=== PATIENT | female | born 1995 | race Two or more races ===

== ENCOUNTER 2018-12-23 20:07 | Emergency (ER) | payer MEDICAID ==
[~2018-12-23] VITALS: Ht 167.6 cm; Wt 65.0 kg
[2018-12-23 20:11] VITALS: BP 107/71
== END 2018-12-23 20:47 | disposition left against medical advice (07) ==
LOC: ER 20:07
DX: Z53.21 Procedure and treatment not carried out due to patient leaving prior to being seen by health care provider (principal)

== ENCOUNTER 2018-12-29 20:35 | Emergency (ER) | payer MEDICAID ==
[~2018-12-29] VITALS: Ht 167.6 cm; Wt 66.0 kg
[2018-12-29] MEDS ORDERED: IPRATROPIUM BROMIDE (0.02%) 0.5MG/2.5ML NEB HHN STA (20:56)
[2018-12-29] MEDS ORDERED: ALBUTEROL (0.083%) 2.5MG/3ML NEB HHN STA (20:56)
[2018-12-29 22:34] VITALS: BP 120/75
== END 2018-12-29 22:34 | disposition home or self-care (01) ==
LOC: ER 20:35
DX: J45.901 Unspecified asthma with (acute) exacerbation (principal); F20.9 Schizophrenia, unspecified; F41.9 Anxiety disorder, unspecified
CPT/HCPCS: 94640; 99283; J7611; Z7610

== ENCOUNTER 2018-12-30 03:44 | Emergency (ER) | payer MEDICAID ==
[~2018-12-30] VITALS: Ht 165.1 cm; Wt 66.0 kg
[2018-12-30] MEDS ORDERED: SODIUM CHLORIDE 0.9% 1,000 ML IV ONE (06:29)
[2018-12-30] MEDS ORDERED: KETOROLAC 30MG/ML VIAL IV STA (06:29)
[2018-12-30 07:04] LABS: BASOPHILS % 0.6 % (0.0-2.0); EOSINOPHILS % 0.8 % (0.0-5.0); HEMATOCRIT. 39.8 % (36.0-48.0); HEMOGLOBIN. 13.5 g/dL (12.0-16.0); LYMPHOCYTES % 25.8 % (20.0-50.0); MEAN CORPUSCULAR HEMOGLOBIN 31.4 pg (28.0-32.0); MEAN PLATELET VOLUME 8.5 fl (7.4-10.4); MONOCYTES % 7.5 % (2.0-8.0); NEUTROPHILS % 65.3 % (40.0-76.0); PLATELET 287 x1000/uL (130-400); RED BLOOD CELL COUNT 4.28 mill/uL (4.2-5.4); RED CELL DISTRIBUTION WIDTH 13.9 % (11.6-14.6)
[2018-12-30 07:10] LABS: CHLORIDE 108 mEq/L (98-107)
[2018-12-30 07:25] LABS: HCG SCREEN NEGATIVE
[2018-12-30 07:37] LABS: CLARITY URINE CLEAR (CLEAR); COLOR URINE YELLOW (YELLOW); KETONES URINE NEGATIVE (NEGATIVE); LEUKOCYTE ESTERASE URINE TRACE (NEGATIVE); NITRITE URINE NEGATIVE (NEGATIVE); OCCULT BLOOD URINE NEGATIVE (NEGATIVE); PH URINE 5.5 (4.5-8.0); PROTEIN URINE NEGATIVE (NEGATIVE); SPECIFIC GRAVITY URINE 1.022 (1.005-1.030); UROBILINOGEN URINE 0.2 E.U./dL (0.2-1.0)
[2018-12-30] MEDS ORDERED: CEFTRIAXONE 1 G PREMIX 50 ML IV ONE (08:15)
[2018-12-30 09:19] VITALS: BP 116/63
== END 2018-12-30 09:21 | disposition home or self-care (01) ==
LOC: ER 03:44
DX: N10 Acute pyelonephritis (principal)
CPT/HCPCS: 36415; 74176; 80053; 81003; 83690; 84703; 85025; 85610; 87086; 96365; 96375; 99284; J0696; J1885; J7030; Z7610

== ENCOUNTER 2019-01-07 20:20 | Emergency (ER) | payer MEDICAID ==
[~2019-01-07] VITALS: Ht 162.6 cm; Wt 64.0 kg
[2019-01-07 21:35] LABS: CLARITY URINE CLEAR (CLEAR); COLOR URINE YELLOW (YELLOW); KETONES URINE NEGATIVE (NEGATIVE); LEUKOCYTE ESTERASE URINE NEGATIVE (NEGATIVE); NITRITE URINE NEGATIVE (NEGATIVE); OCCULT BLOOD URINE NEGATIVE (NEGATIVE); PROTEIN URINE NEGATIVE (NEGATIVE); SPECIFIC GRAVITY URINE 1.002 (1.005-1.030); UROBILINOGEN URINE 0.2 E.U./dL (0.2-1.0)
[2019-01-07] MEDS ORDERED: KETOROLAC 60MG/2ML VIAL IM ONE (22:00)
[2019-01-07 22:34] VITALS: BP 125/84
== END 2019-01-07 22:35 | disposition home or self-care (01) ==
LOC: ER 20:20
DX: M79.18 Myalgia, other site (principal); Z87.440 Personal history of urinary (tract) infections
CPT/HCPCS: 81003; 81025; 96372; 99283; J1885

== ENCOUNTER 2019-01-14 16:01 | Emergency (ER) | payer MEDICAID ==
[~2019-01-14] VITALS: Ht 167.6 cm; Wt 66.0 kg
[2019-01-14] MEDS ORDERED: SODIUM CHLORIDE 0.9% 1,000 ML IV ONE (16:27)
[2019-01-14] MEDS ORDERED: ALBUTEROL (0.083%) 2.5MG/3ML NEB HHN ONE (16:30)
[2019-01-14 16:50] LABS: BASOPHILS % 0.7 % (0.0-2.0); EOSINOPHILS % 1.4 % (0.0-5.0); HEMATOCRIT. 39.7 % (36.0-48.0); HEMOGLOBIN. 13.3 g/dL (12.0-16.0); LYMPHOCYTES % 37.7 % (20.0-50.0); MEAN CORPUSCULAR HEMOGLOBIN 31.2 pg (28.0-32.0); MEAN CORPUSCULAR VOLUME 93.4 fL (81.0-99.0); MEAN PLATELET VOLUME 9.3 fl (7.4-10.4); MONOCYTES % 5.3 % (2.0-8.0); NEUTROPHILS % 54.9 % (40.0-76.0); PLATELET 276 x1000/uL (130-400); RED BLOOD CELL COUNT 4.26 mill/uL (4.2-5.4); RED CELL DISTRIBUTION WIDTH 13.5 % (11.6-14.6)
[2019-01-14 16:57] LABS: CHLORIDE 110 mEq/L (98-107)
[2019-01-14] MEDS ORDERED: LORAZEPAM 1MG TABLET PO ONE (17:15)
[2019-01-14 18:42] LABS: CLARITY URINE CLEAR (CLEAR); COLOR URINE YELLOW (YELLOW); KETONES URINE NEGATIVE (NEGATIVE); LEUKOCYTE ESTERASE URINE TRACE (NEGATIVE); NITRITE URINE NEGATIVE (NEGATIVE); OCCULT BLOOD URINE 3+ (NEGATIVE); PH URINE 7.5 (4.5-8.0); PROTEIN URINE NEGATIVE (NEGATIVE); SPECIFIC GRAVITY URINE 1.012 (1.005-1.030); UROBILINOGEN URINE 0.2 E.U./dL (0.2-1.0)
[2019-01-14] MEDS ORDERED: LORAZEPAM 2MG/ML CPJ IV ONE (18:45)
[2019-01-14] MEDS ORDERED: ALBUTEROL (0.5%) 2.5MG/0.5ML NEB HHN ONE (18:45)
[2019-01-14] MEDS ORDERED: POTASSIUM CHLORIDE 20MEQ TABLET SR PO ONE (18:45)
[2019-01-14 19:30] VITALS: BP 114/75
== END 2019-01-14 20:00 | disposition home or self-care (01) ==
LOC: ER 16:01
DX: J45.901 Unspecified asthma with (acute) exacerbation (principal); E87.6 Hypokalemia; N39.0 Urinary tract infection, site not specified
CPT/HCPCS: 36415; 71045; 80053; 81003; 82962; 85025; 93005; 94640; 96374; 99284; J2060; J7030; J7611; Z7610

== ENCOUNTER 2019-01-16 13:55 | Emergency (ER) | payer MEDICAID ==
[~2019-01-16] VITALS: Ht 167.6 cm; Wt 70.0 kg
[2019-01-16] MEDS ORDERED: ALPRAZOLAM 0.25 MG TABLET PO ONE (14:45)
[2019-01-16] MEDS ORDERED: ALBUTEROL (0.083%) 2.5MG/3ML NEB HHN ONE (14:45)
[2019-01-16] MEDS ORDERED: PREDNISONE 20MG TABLET PO ONE (14:45)
[2019-01-16 16:20] VITALS: BP 121/84
== END 2019-01-16 17:32 | disposition home or self-care (01) ==
LOC: ER 14:48
DX: J15.9 Unspecified bacterial pneumonia (principal); J45.909 Unspecified asthma, uncomplicated; Z87.440 Personal history of urinary (tract) infections
CPT/HCPCS: 94640; 99283; J7512; J7611; Z7610

== ENCOUNTER 2019-01-16 19:18 | Emergency (ER) | payer MEDICAID ==
[~2019-01-16] VITALS: Ht 162.6 cm; Wt 73.0 kg
[2019-01-16 19:25] VITALS: BP 112/72
== END 2019-01-16 21:40 | disposition left against medical advice (07) ==
LOC: ER 19:32
DX: R06.02 Shortness of breath (principal); Z53.21 Procedure and treatment not carried out due to patient leaving prior to being seen by health care provider

== ENCOUNTER 2019-01-18 14:15 | Emergency (ER) | payer MEDICAID ==
[~2019-01-18] VITALS: Ht 170.2 cm; Wt 73.0 kg
[2019-01-18] MEDS ORDERED: ALBUTEROL (0.083%) 2.5MG/3ML NEB HHN STA (14:45)
[2019-01-18] MEDS ORDERED: DIPHENHYDRAMINE 50MG CAPSULE PO ONE (14:45)
[2019-01-18] MEDS ORDERED: FAMOTIDINE 20MG TABLET PO ONE (14:45)
[2019-01-18] MEDS ORDERED: LORAZEPAM 1MG TABLET PO ONE (17:48)
[2019-01-18 18:04] VITALS: BP 114/75
== END 2019-01-18 18:10 | disposition home or self-care (01) ==
LOC: ER 14:15
DX: R06.02 Shortness of breath (principal); F41.9 Anxiety disorder, unspecified; F17.210 Nicotine dependence, cigarettes, uncomplicated; F12.10 Cannabis abuse, uncomplicated; J45.909 Unspecified asthma, uncomplicated
CPT/HCPCS: 71045; 94644; 99285; 99406; J7611; Q0163; Z7610; 99284

== ENCOUNTER 2019-01-21 03:01 | Emergency (ER) | payer MEDICAID ==
[~2019-01-21] VITALS: Ht 167.6 cm; Wt 84.0 kg
[2019-01-21 03:45] VITALS: BP 122/72
== END 2019-01-21 04:29 | disposition home or self-care (01) ==
LOC: ER 03:18
DX: J45.909 Unspecified asthma, uncomplicated (principal); F41.9 Anxiety disorder, unspecified; F17.290 Nicotine dependence, other tobacco product, uncomplicated; F12.10 Cannabis abuse, uncomplicated
CPT/HCPCS: 99283

== ENCOUNTER 2019-01-31 18:31 | Emergency (ER) | payer MEDICAID ==
[~2019-01-31] VITALS: Ht 165.1 cm; Wt 60.0 kg
[2019-01-31 18:45] VITALS: BP 132/68
[2019-01-31] MEDS ORDERED: ALBUTEROL (0.083%) 2.5MG/3ML NEB HHN ONE (20:30)
== END 2019-01-31 20:16 | disposition left against medical advice (07) ==
LOC: ER 18:31
DX: J45.901 Unspecified asthma with (acute) exacerbation (principal)
CPT/HCPCS: 94640; 99283; J7611

== ENCOUNTER 2019-02-02 17:17 | Emergency (ER) | payer MEDICAID ==
[~2019-02-02] VITALS: Ht 165.1 cm; Wt 73.0 kg
[2019-02-02] MEDS ORDERED: IPRATROPIUM BROMIDE (0.02%) 0.5MG/2.5ML NEB HHN STA (18:04)
[2019-02-02] MEDS ORDERED: ALBUTEROL (0.083%) 2.5MG/3ML NEB HHN STA (18:04)
[2019-02-02] MEDS ORDERED: ALPRAZOLAM 0.25 MG TABLET PO ONE (18:15)
[2019-02-02 19:25] VITALS: BP 121/69
== END 2019-02-02 19:30 | disposition home or self-care (01) ==
LOC: ER 18:18
DX: J45.901 Unspecified asthma with (acute) exacerbation (principal); F41.9 Anxiety disorder, unspecified
CPT/HCPCS: 81025; 94640; 99284; J7611; Z7610

== ENCOUNTER 2019-02-13 11:59 | Emergency (ER) | payer MEDICAID ==
[~2019-02-13] VITALS: Ht 165.1 cm; Wt 64.0 kg
[2019-02-13] MEDS ORDERED: IPRATROPIUM BROMIDE (0.02%) 0.5MG/2.5ML NEB HHN STA (12:22)
[2019-02-13] MEDS ORDERED: PREDNISONE 20MG TABLET PO STA (12:22)
[2019-02-13] MEDS ORDERED: ALBUTEROL (0.083%) 2.5MG/3ML NEB HHN STA (12:22)
[2019-02-13 13:44] VITALS: BP 112/76
[2019-02-13 14:53] LABS: METHADONE URINE SCREEN NEGATIVE (NEGATIVE); OPIATES URINE SCREEN NEGATIVE (NEGATIVE); PHENCYCLIDINE URINE SCREEN NEGATIVE (NEGATIVE)
[2019-02-13 14:54] LABS: *AMPHETAMINES SCREEN URINE NEGATIVE (NEGATIVE); *BARBITURATES SCREEN URINE NEGATIVE (NEGATIVE); *BENZODIAZEPINES SCREEN URINE NEGATIVE (NEGATIVE); *COCAINE SCREEN URINE NEGATIVE (NEGATIVE)
[2019-02-13 15:01] LABS: CANNABINOID URINE SCREEN PRESUMTIVE POSITIVE (NEGATIVE)
== END 2019-02-13 13:58 | disposition home or self-care (01) ==
LOC: ER 12:28
DX: J45.901 Unspecified asthma with (acute) exacerbation (principal); F17.290 Nicotine dependence, other tobacco product, uncomplicated; F12.10 Cannabis abuse, uncomplicated; F32.9 Major depressive disorder, single episode, unspecified
CPT/HCPCS: 71045; 80305; 94640; 99284; 99406; J7512; J7611; Z7610

== ENCOUNTER 2019-02-13 16:02 | Emergency (ER) | payer MEDICAID ==
[~2019-02-13] VITALS: Ht 167.6 cm; Wt 64.0 kg
[2019-02-13 16:03] VITALS: BP 128/75
== END 2019-02-13 16:52 | disposition left against medical advice (07) ==
LOC: ER 16:02
DX: J45.901 Unspecified asthma with (acute) exacerbation (principal); F41.9 Anxiety disorder, unspecified; F32.9 Major depressive disorder, single episode, unspecified; F20.9 Schizophrenia, unspecified; F12.10 Cannabis abuse, uncomplicated
CPT/HCPCS: 99283

== ENCOUNTER 2019-02-14 09:31 | Emergency (ER) | payer MEDICAID ==
[~2019-02-14] VITALS: Ht 165.1 cm; Wt 68.0 kg
[2019-02-14] MEDS ORDERED: IBUPROFEN 600MG TABLET PO ONE (10:45)
[2019-02-14 11:05] VITALS: BP 123/77
== END 2019-02-14 11:05 | disposition home or self-care (01) ==
LOC: ER 09:31
DX: R07.89 Other chest pain (principal); R06.02 Shortness of breath; F12.10 Cannabis abuse, uncomplicated; F41.9 Anxiety disorder, unspecified; J45.909 Unspecified asthma, uncomplicated; F32.9 Major depressive disorder, single episode, unspecified; F20.9 Schizophrenia, unspecified
CPT/HCPCS: 81025; 93005; 99283

== ENCOUNTER 2019-02-18 10:30 | Emergency (ER) | payer MEDICAID ==
[~2019-02-18] VITALS: Ht 170.2 cm; Wt 70.0 kg
[2019-02-18] MEDS ORDERED: ALBUTEROL (0.083%) 2.5MG/3ML NEB HHN STA (10:48)
[2019-02-18] MEDS ORDERED: IPRATROPIUM BROMIDE (0.02%) 0.5MG/2.5ML NEB HHN STA (10:48)
[2019-02-18] MEDS ORDERED: SODIUM CHLORIDE 0.9% 1,000 ML IV ONE ×2 (10:48→12:45)
[2019-02-18] MEDS ORDERED: ALBUTEROL (0.083%) 2.5MG/3ML NEB ONE (11:00)
[2019-02-18] MEDS ORDERED: IPRATROPIUM BROMIDE (0.02%) 0.5MG/2.5ML NEB ONE (11:01)
[2019-02-18 11:48] LABS: BASOPHILS % 0.4 % (0.0-2.0); EOSINOPHILS % 0.6 % (0.0-5.0); HEMATOCRIT. 39.9 % (36.0-48.0); HEMOGLOBIN. 13.4 g/dL (12.0-16.0); LYMPHOCYTES % 22.5 % (20.0-50.0); MEAN CORPUSCULAR HEMOGLOBIN 31.4 pg (28.0-32.0); MEAN CORPUSCULAR VOLUME 93.2 fL (81.0-99.0); MEAN PLATELET VOLUME 8.2 fl (7.4-10.4); MONOCYTES % 6.7 % (2.0-8.0); NEUTROPHILS % 69.8 % (40.0-76.0); PLATELET 320 x1000/uL (130-400); RED BLOOD CELL COUNT 4.28 mill/uL (4.2-5.4); RED CELL DISTRIBUTION WIDTH 14.5 % (11.6-14.6)
[2019-02-18 11:57] LABS: CHLORIDE 111 mEq/L (98-107)
[2019-02-18 14:07] VITALS: BP 130/76
== END 2019-02-18 14:11 | disposition home or self-care (01) ==
LOC: ER 10:49
DX: R06.02 Shortness of breath (principal); F17.290 Nicotine dependence, other tobacco product, uncomplicated; F41.9 Anxiety disorder, unspecified
CPT/HCPCS: 36415; 71046; 80053; 83880; 84484; 85025; 85379; 93005; 94640; 99284; 99406; J7030; J7611; Z7610

== ENCOUNTER 2019-02-26 17:17 | Emergency (ER) | payer MEDICAID ==
[~2019-02-26] VITALS: Ht 165.1 cm; Wt 70.0 kg
[2019-02-26 17:20] VITALS: BP 122/78
== END 2019-02-26 18:24 | disposition left against medical advice (07) ==
LOC: ER 17:17
DX: F91.8 Other conduct disorders (principal); F12.188 Cannabis abuse with other cannabis-induced disorder; F19.10 Other psychoactive substance abuse, uncomplicated; R03.0 Elevated blood-pressure reading, without diagnosis of hypertension; J45.909 Unspecified asthma, uncomplicated; Z92.89 Personal history of other medical treatment
CPT/HCPCS: 99283

== ENCOUNTER 2019-02-26 18:56 | Emergency (ER) | payer MEDICAID ==
[~2019-02-26] VITALS: Ht 167.6 cm; Wt 61.0 kg
[2019-02-26 18:58] VITALS: BP 124/83
== END 2019-02-26 20:45 | disposition left against medical advice (07) ==
LOC: ER 18:56
DX: Z53.21 Procedure and treatment not carried out due to patient leaving prior to being seen by health care provider (principal)

== ENCOUNTER 2019-03-20 16:49 | Emergency (ER) | payer MEDICAID ==
[~2019-03-20] VITALS: Ht 167.6 cm; Wt 68.0 kg
[2019-03-20 16:55] VITALS: BP 116/80
== END 2019-03-20 23:21 | disposition left against medical advice (07) ==
LOC: ER 16:49
DX: R06.02 Shortness of breath (principal); Z53.21 Procedure and treatment not carried out due to patient leaving prior to being seen by health care provider

== ENCOUNTER 2019-07-30 10:29 | Emergency (ER) | payer MEDICAID ==
[~2019-07-30] VITALS: Ht 170.2 cm; Wt 69.0 kg
[2019-07-30 10:30] VITALS: BP 148/92
== END 2019-07-30 10:39 | disposition left against medical advice (07) ==
LOC: ER 10:38
DX: F41.9 Anxiety disorder, unspecified (principal); Z53.21 Procedure and treatment not carried out due to patient leaving prior to being seen by health care provider

== ENCOUNTER 2019-07-30 18:39 | Emergency (ER) | payer MEDICAID ==
[~2019-07-30] VITALS: Ht 170.2 cm; Wt 69.0 kg
[2019-07-30] MEDS ORDERED: LORAZEPAM 2MG/ML CPJ IM STA (19:05)
[2019-07-30] MEDS ORDERED: OLANZAPINE 10 MG/VIAL IM ONE (19:15)
[2019-07-30] MEDS ORDERED: SODIUM CHLORIDE 0.9% 1,000 ML IV ONE (20:22)
[2019-07-30] MEDS ORDERED: LORAZEPAM 2MG/ML CPJ IV ONE (20:30)
[2019-07-30 21:04] LABS: BASOPHILS % 0.6 % (0.0-2.0); EOSINOPHILS % 0.3 % (0.0-5.0); HEMATOCRIT. 43.8 % (36.0-48.0); HEMOGLOBIN. 15.1 g/dL (12.0-16.0); LYMPHOCYTES % 29.2 % (20.0-50.0); MEAN CORPUSCULAR HEMOGLOBIN 32.2 pg (28.0-32.0); MEAN CORPUSCULAR VOLUME 93.7 fL (81.0-99.0); MEAN PLATELET VOLUME 8.3 fl (7.4-10.4); MONOCYTES % 7.1 % (2.0-8.0); NEUTROPHILS % 62.8 % (40.0-76.0); PLATELET 330 x1000/uL (130-400); RED BLOOD CELL COUNT 4.67 mill/uL (4.2-5.4); RED CELL DISTRIBUTION WIDTH 14.6 % (11.6-14.6)
[2019-07-30 21:13] LABS: CHLORIDE 108 mEq/L (98-107)
[2019-07-30 21:17] LABS: ETHANOL BLOOD 235 mg/dL
[2019-07-30 21:43] LABS: HCG SCREEN NEGATIVE
[2019-07-30 22:00] VITALS: BP 118/68
== END 2019-07-30 21:40 | disposition home or self-care (01) ==
LOC: ER 18:39
DX: F15.129 Other stimulant abuse with intoxication, unspecified (principal); R03.0 Elevated blood-pressure reading, without diagnosis of hypertension; R45.1 Restlessness and agitation; R00.0 Tachycardia, unspecified; J45.909 Unspecified asthma, uncomplicated; F20.9 Schizophrenia, unspecified
CPT/HCPCS: 36415; 80053; 80320; 84703; 85025; 96374; 99283; J2060; J7030; G0480

== ENCOUNTER 2019-10-02 21:50 | Emergency (ER) | payer MEDICAID ==
[~2019-10-02] VITALS: Ht 172.7 cm; Wt 73.0 kg
[2019-10-02] MEDS ORDERED: KETOROLAC 30MG/ML VIAL IM ONE (22:30)
[2019-10-02 22:45] VITALS: BP 134/8
== END 2019-10-03 00:50 | disposition home or self-care (01) ==
LOC: ER 21:50
DX: S40.021A Contusion of right upper arm, initial encounter (principal); M25.511 Pain in right shoulder; W01.198A Fall on same level from slipping, tripping and stumbling with subsequent striking against other object, initial encounter; Y93.89 Activity, other specified; Y92.89 Other specified places as the place of occurrence of the external cause; F15.10 Other stimulant abuse, uncomplicated
CPT/HCPCS: 73030; 73060; 96372; 99284; J1885